=== PATIENT | female | born 1960 | race Caucasian/White ===

== ENCOUNTER 2020-08-27 09:30 | Outpatient (CLI) | payer OTHER, SELFPAY ==
--- NOTE | ~2020-08-27 | MM_ITS ---
EXAMINATION: MM screening [facility] BI w gamaliel HISTORY: Screening mammogram TECHNIQUE: Craniocaudal and mediolateral oblique 3-D tomosynthesis images were obtained and synthetic 2-D images were generated. CAD analysis was submitted and interpreted. COMPARISON: 06/14/2018, 06/07/2018, 12/18/2014, 02/21/2013 BREAST PARENCHYMAL COMPOSITION: There are scattered areas of fibroglandular density. FINDINGS: A stable asymmetry is present in the anterior third of the upper left breast on the mediola teral oblique view. There is no evidence of suspicious mass, calcification, or architectural distorti on to suggest malignancy in either breast. There has been no suspicious interval change. IMPRESSION: 1. No mammographic evidence of malignancy. 2. Recommend routine screening mammography in one year. BI-RADS Category 2: Benign finding(s). Reviewed, dictated and finalized at location A. B TECHNICIAN
== END 2020-08-27 09:31 | disposition home or self-care (01) ==
LOC: ANHIMG 09:34
PROVIDERS: PCP Nurse Practitioner Adult Health; Visit Provider Nurse Practitioner Adult Health
DX: Z12.31 Encounter for screening mammogram for malignant neoplasm of breast (principal)
CPT/HCPCS: 77063; 77067

== ENCOUNTER → 2023-03-12 10:44 | Outpatient (CLI) | payer OTHER, SELFPAY ==
--- NOTE | ~2023-03-12 | DEXA_ITS ---
Bone Density Report Name: INDER HAND Age: 62 Sex: Female Ethnicity: White Date of : 1960 Indication: postmenopausal; screening for osteoporosis; Referring Provider: Cortez, Cande Massey Study: Bone densitometry was performed. Exam Date: March 12, 2023 Accession number: [id number] Bone Density: Region BMD T-score Z-score Classification AP Spine (L1-L4) 1.246 1.8 3.4 Normal Femoral Neck (Left) 0.947 0.9 2.3 Normal Total Hip (Left) 1.224 2.3 3.4 Normal Femoral Neck (Right) 0.889 0.4 1.7 Normal Total Hip (Right) 1.120 1.5 2.5 Normal Total Hip Mean 1.172 1.9 3.0 Normal World Health Organization criteria for BMD impression classify patients as: Normal (T-score at or above -1.0), Osteopenia (T-score between -1.0 and -2.5), or Osteoporosis (T-score at or below -2.5). 10-year Fracture Risk: FRAX not reported because: All T-scores for Spine Total, Hip Total, Femoral Neck at or above -1.0 Clinical Information Provided by Patient: Has used the following medications: Vitamin D, Calcium Patient maximum height was 63 Menopause Age: 53 Drinks caffeinated beverages Onset of menses at age 12 Number of children 1 Impression: The patient has normal bone mass. Discussion: BONE DENSITY IS ABOVE THE MINIMUM DESIRABLE LEVEL AT ALL SKELETAL SITES TESTED. This patient?s bone mineral density is above the minimum desirable level (T-score -1.0 or better) at all sites measured. The patient should follow a healthful lifestyle (good nutrition with adequate calcium and vitamin D, and appropriate weight-bearing exercise). Follow-Up: Consider repeating this study in 5 years or sooner if there is some new clinical indication. Reported by: [facility] on 03/12/2023 11:07:00 AM. Reviewed, dictated and finalized at location A. [facility]
--- NOTE | ~2023-03-12 | MM_ITS ---
EXAMINATION: MM screening [facility] BI w gamaliel HISTORY: Screening mammogram TECHNIQUE: Craniocaudal and mediolateral oblique 3-D tomosynthesis images were obtained and synthetic 2-D images were generated. CAD analysis was submitted and interpreted. COMPARISON: 08/27/2020, 06/14/2018, 06/07/2018, 12/18/2014 BREAST PARENCHYMAL COMPOSITION: There are scattered areas of fibroglandular density. FINDINGS: Scattered benign-appearing calcifications are present. No suspicious mass, calcification, o r architectural distortion are identified in either breast to suggest malignancy. There has been no s uspicious interval change. IMPRESSION: 1. No mammographic evidence of malignancy. 2. Recommend routine screening mammography in one year. BI-RADS Category 2: Benign finding(s). Reviewed, dictated and finalized at location A.
== END ==
PROVIDERS: PCP Nurse Practitioner Family; Visit Provider Nurse Practitioner Family
DX: Z12.31 Encounter for screening mammogram for malignant neoplasm of breast (principal); Z78.0 Asymptomatic menopausal state
CPT/HCPCS: 77063; 77067; 77080

== ENCOUNTER 2023-06-08 10:52 | Outpatient (CLI) | payer OTHER, SELFPAY ==
--- NOTE | ~2023-06-08 | US_ITS ---
EXAMINATION: US carotid duplex BI DATE: 06/08/2023 11:50 INDICATION: Cerebrovascular accident TECHNIQUE: Grayscale, color Doppler, and pulsed Doppler images of the cervical carotid arteries were obtained. The degree of vessel stenosis is placed in one of the following categories: normal, <50%, 5 0-69%, >=70% but less than near-occlusion, near-occlusion, or total occlusion. Note that percent sten osis relative to normal distal artery lumen diameter is indirectly measured from velocity measurement s as described by Dariel, et al. Radiology 2003; 229:340-346. Notes: Normal: Peak systolic velocity <125 centimeters/sec and no plaque <50%. Peak systolic velocity <125 ( EDV <40; ICA/CCA PSV ratio <2.0; used these factors only a tandem lesions or low cardiac output or co ntralateral disease) 50-69 %: PSV 125-230 (EDV 40-100; ratio 2-4) >= 70% but less than near occlusion: PSV greater than 230 (EDV > 100; ratio> 4.0) Near Occlusion: PSV that is variable; markedly narrowed lumen Occlusion: Absent flow on color/spectral Doppler and no lumen on boone scale. COMPARISON: None. FINDINGS: RIGHT: The right common carotid artery (CCA) peak systolic velocity (PSV) is 100 cm/s. The right internal ca rotid artery (ICA) PSV is 43 cm/s. The right ICA end-diastolic velocity (EDV) is 16 cm/s. The right I CA/CCA PSV ratio is 0.4. The external carotid artery (ECA) PSV is 100 cm/s. There is antegrade flow i n the right vertebral artery. LEFT: The left CCA PSV is 55 cm/s. The left ICA PSV is 75 cm/s. The left ICA EDV is 15 cm/s. The left ICA/C CA PSV ratio is 0.9. The ECA PSV is 126 cm/s. There is antegrade flow in the left vertebral artery. There are thyroid nodules incompletely visualized on this examination. Recommend correlation with thy roid ultrasound. IMPRESSION: 1. Less than 50% stenosis in the right internal carotid artery by sonographic criteria. 2. Less than 50% stenosis in the left internal carotid artery by sonographic criteria. Reviewed, dictated and finalized at location B. IMPRESSION: 1. Less than 50% stenosis in the right internal carotid artery by sonographic c miguel. 2. Less than 50% stenosis in the left internal carotid artery by sonographic cr davi.
== END 2023-06-08 10:53 ==
DX: I63.9 Cerebral infarction, unspecified (principal); I65.23 Occlusion and stenosis of bilateral carotid arteries
CPT/HCPCS: 93880

== ENCOUNTER 2024-01-14 11:05 | Outpatient (CLI) | payer BC, SELFPAY ==
[2024-01-14 18:53] LABS: Appearance Urine Clear (Clear); Bacteria Urine None Seen /hpf; Bilirubin Urine Negative (Negative); Blood Urine Trace (Negative); Color Urine Yellow (Yellow); Glucose Urine UA Negative (Negative); Ketones Urine Negative (Negative); Leukocyte Esterase Ur 1+ LEU/UL (Negative); Nitrate Urine Negative (Negative); Non Pathogenic Casts 0-2; Protein Urine Negative (Negative); Specific Grav Ur 1.024 (1.001-1.035); Squamous Epithelial Cell Urine None Seen /hpf (Few); Urobilinogen Urine 0.2 mg/dL (<2.0); pH Urine 5.5 (5.0-9.0)
[2024-01-14 19:19] LABS: Add Urine Microscopic? YES
== END 2024-01-14 11:06 | disposition home or self-care (01) ==
LOC: ANHBWCLAB 11:06
PROVIDERS: PCP Nurse Practitioner Adult Health; Visit Provider Nurse Practitioner Adult Health
DX: R39.9 Unspecified symptoms and signs involving the genitourinary system (principal)
CPT/HCPCS: 81001; 87086; 87088

== ENCOUNTER 2024-02-29 13:00 | Outpatient (RCR) | payer BC, SELFPAY ==
--- NOTE | 2023-12-08 14:56 | OTOPEVAL1 ---
Assessment and note entered by CARLITO Mcgill/Arjun, CHT Evaluation Information Assessment Status Evaluation Diagnosis CVA Onset March 28, 2023 Subjective Information Patient presents today with her spouse, Ted, who helps provides help with her history as she has expressive aphasia. Her CVA has affected her right , dominant side. They report she was doing well inpatient rehab, getting her arm stronger, however she did a round of outpatient PT, which was too aggressive and painful and her arm function declined. They report she is unable to use her right UE to feed herself, drink from cups, or write. She has been recently able to use the right hand to pinch and pull up her pants when dressing . Reported Pain Level Pain Score 0: Self Report Additional Pain Score Comments No pain at rest. Mild to moderate pain in the shoulder with active ROM. Assessment OT Clinical Summary Patient referred to OT with decline in right UE use following a CVA. She presents with pain, tightness, and weakness that limits her ability to use the right UE for ADLs. Skilled OT indicated to maximize functional use of the right UE through therapeutic exercise, HEP instruction, and therapeutic activities. Plan of Care Interventions Therapeutic Exercise,Neuro Re-education, Therapeutic Activities,Hot Pack/Cold Pack OT Services Indicated Yes Treatment Frequency and 2x/week for 8 visits Duration These treatments will address the objective and functional deficits as defined above. The patient will be advanced safely and appropriately in order for the patient to progress towards his/her prior level of function. Additional exercises will be introduced and as well as a comprehensive home exercise program upon discharge, if needed, ?to ensure carryover of functional gains achieved in the clinic. This treatment plan has been reviewed and agreement upon by the patient.
--- NOTE | 2023-12-08 14:56 | OPREHPOC ---
Outpatient Therapy Plan of Care This is a Multidisciplinary Plan of Care that may contain components documented by all disciplines (PT, OT, and ST.) OT Problem 1 OT Problem #1 Knowledge Deficit OT Goal 1 Goal 1. Patient/spouse to be independent with instructed materials. Target Visit 8 OT Goal 1 Goal 1. Increase active ROM of the right shoulder - flexion to 100 - abduction to 80 - external rotation to be able to touch the back of her head Target Visit 8 OT Problem 3 OT Problem #3 Impaired Strength OT Goal 1 Goal 1. 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 Target Visit 8 OT Problem 4 OT Problem #4 Impaired Coordination OT Goal 1 Goal 1. Be able to complete the 9-hole peg test with the right hand in 45 seconds or less. Target Visit 8
--- NOTE | 2023-12-31 13:58 | OTOPPROG ---
Assessment and note entered by CARLITO Mcgill/Arjun, CHT Progress Update 12/31/23 Diagnosis CVA Onset March 28, 2023 Subjective Information Patient reports noticing progress in her right UE since beginning therapy. She reports she is raising the arm higher, picking up more objects with the right hand, and able to pinch and open bags. Assessment OT Clinical Summary Patient has been working with OT x1 month focusing on right UE flexibility, strength, and functional coordination. She is making progress with all of the above, which is facilitating improved functional use during ADLs. Continued skilled OT indicated to maximize functional use of the right UE through therapeutic exercise, HEP instruction, and therapeutic activities. Plan of Care Interventions Therapeutic Exercise,Neuro Re-education, Therapeutic Activities,Hot Pack/Cold Pack OT Services Indicated Yes Treatment Frequency and 2x/week for 8 visits Duration These treatments will address the objective and functional deficits as defined above. The patient will be advanced safely and appropriately in order for the patient to progress towards his/her prior level of function. Additional exercises will be introduced and as well as a comprehensive home exercise program upon discharge, if needed, ?to ensure carryover of functional gains achieved in the clinic. This treatment plan has been reviewed and agreement upon by the patient.
--- NOTE | 2023-12-31 13:59 | OPREHPOC ---
Outpatient Therapy Plan of Care This is a Multidisciplinary Plan of Care that may contain components documented by all disciplines (PT, OT, and ST.) OT Problem 1 OT Problem #1 Knowledge Deficit OT Goal 1 Goal 1. Patient/spouse to be independent with instructed materials. ---OT POC UPDATE 12/31/23--- 1. Met, continue as HEP is progressed Target Visit 16 OT Goal 1 Goal 1. Increase active ROM of the right shoulder - flexion to 100 - abduction to 80 - external rotation to be able to touch the back of her head ---OT POC UPDATE 12/31/23--- 1. Progressing, continue 2. Progressing, continue 3. Progressing, continue Target Visit 16 OT Problem 3 OT Problem #3 Impaired Strength OT Goal 1 Goal 1. 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 ---OT POC UPDATE 12/31/23--- 1. Progressing, continue 2. Progressing, continue 3. Progressing, continue Target Visit 16 OT Problem 4 OT Problem #4 Impaired Coordination OT Goal 1 Goal 1. Be able to complete the 9-hole peg test with the right hand in 45 seconds or less. ---OT POC UPDATE 12/31/23--- 1. Progressing, continue Target Visit 16
--- NOTE | 2024-01-13 15:12 | PCOTNOTE ---
The patient treatment was not able to be completed on Wednesday 01/10 due to Therapist being out of the building. Will plan to continue treatment per plan of care. Patient rescheduled 01-11.
--- NOTE | 2024-01-29 12:07 | OTOPPROG ---
Assessment and note entered by CARLITO Mcgill/Arjun, ROSALINAT Progress Update 01/29/24 Assessment Status Progress Diagnosis CVA Onset March 28, 2023 Subjective Information Patient reports continued progress over the past month. She reports she began using her right hand to feed herself some (compared to not at all a month ago). She is using her right hand to scoop coffee grounds into the bleach maker. Reports improved flexibility. States she was able to clam picker some pans with both hands and place them on a shelf. Patient's reports she is compliant with her home program. Assessment OT Clinical Summary Patient has been working with OT x2 months focusing on right UE flexibility, strength, and functional coordination. She is making progress with all of the above, which is facilitating improved functional use during ADLs. The shoulder continues to have mild to moderate pain with passive shoulder motion, gross weakness, and overall stiffness and hypomobility of the shoulder . Distally the elbow, wrist, and hand are making good progress with strength and functional use. Continued skilled OT indicated to maximize functional use of the right UE through therapeutic exercise, HEP instruction, and therapeutic activities. Plan of Care Interventions Therapeutic Exercise,Neuro Re-education, Therapeutic Activities,Hot Pack/Cold Pack OT Services Indicated Yes Treatment Frequency and 2x/week for 8 visits Duration These treatments will address the objective and functional deficits as defined above. The patient will be advanced safely and appropriately in order for the patient to progress towards his/her prior level of function. Additional exercises will be introduced and as well as a comprehensive home exercise program upon discharge, if needed, ?to ensure carryover of functional gains achieved in the clinic. This treatment plan has been reviewed and agreement upon by the patient.
--- NOTE | 2024-01-29 12:08 | OPREHPOC ---
Outpatient Therapy Plan of Care This is a Multidisciplinary Plan of Care that may contain components documented by all disciplines (PT, OT, and ST.) OT Problem 1 OT Problem #1 Knowledge Deficit OT Goal 1 Goal 1. Patient/spouse to be independent with instructed materials. ---OT POC UPDATE 12/31/23--- 1. Met, continue as HEP is progressed ---OT POC UPDATE 01/29/24---- 1. Met, continue as HEP is progressed Target Visit 24 OT Goal 1 Goal 1. Increase active ROM of the right shoulder - flexion to 100 - abduction to 80 - external rotation to be able to touch the back of her head ---OT POC UPDATE 12/31/23--- 1. Progressing, continue 2. Progressing, continue 3. Progressing, continue ---OT POC UPDATE 01/29/24---- 1. Progressing, continue 2. Progressing, continue 3. Progressing, continue Target Visit 24 OT Problem 3 OT Problem #3 Impaired Strength OT Goal 1 Goal 1. 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 ---OT POC UPDATE 12/31/23--- 1. Progressing, continue 2. Progressing, continue 3. Progressing, continue ---OT POC UPDATE 01/29/24---- 1. Progressing, continue 2. Progressing, continue 3. Progressing, continue Target Visit 24 OT Problem 4 OT Problem #4 Impaired Coordination OT Goal 1 Goal 1. Be able to complete the 9-hole peg test with the right hand in 45 seconds or less. ---OT POC UPDATE 12/31/23--- 1. Progressing, continue ---OT POC UPDATE 01/29/24---- 1. Progressing, continue Target Visit 24
--- NOTE | 2024-02-29 13:48 | OTOPDC ---
Assessment and note entered by Michael Salas, CARLITO/Arjun, CHT OT Discharge Summary 02/29/24 Diagnosis CVA Onset March 28, 2023 Subjective Information Patient reports she is feeling about the same as she was a month ago. She is unable to note any functional changes over the last few weeks. She has continued to be able to use her right hand to feed herself and to scoop coffee grounds into the car seat maker. She reports she is functioning independently and is pleased with the level of functioning she has with her arm. Compared to a few months ago she was having shoulder pain with any/all arm use and she is no longer experiencing pain. Assessment OT Clinical Summary Patient has been working with OT x3 months focusing on right UE flexibility, strength, and functional coordination. Since the start of care she has made good progress with functional flexibility, strength, and fine motor coordination . She is no longer functioning on a daily basis with shoulder pain. At this time she has reached a progress plateau with therapy. Reviewed HEP today and she completes with excellent understanding. No further skilled OT indicated at this time. Plan of Care OT Services Indicated No
== END 2024-02-29 14:22 | disposition home or self-care (01) ==
LOC: ANHGOSHOT 13:00
PROVIDERS: PCP Nurse Practitioner Adult Health; Visit Provider Nurse Practitioner Adult Health
DX: R29.898 Other symptoms and signs involving the musculoskeletal system (principal)
CPT/HCPCS: 97110; 97165

== ENCOUNTER 2024-03-21 11:42 | Outpatient (CLI) | payer BC, SELFPAY ==
--- NOTE | ~2024-03-21 | US_ITS ---
EXAMINATION: US thyroid DATE: 03/21/2024 12:00 INDICATION: Nontoxic single thyroid nodule. TECHNIQUE: Multiple ultrasound images of the thyroid were obtained. COMPARISON: None. FINDINGS: The right thyroid lobe measures 6.2 x 4.2 x 2.6 cm. The left thyroid lobe is absent. In the right th yroid lobe, there is a 3.5 cm solid, hypoechoic, taller than wide nodule with ill-defined margin with out echogenic foci (TI-RADS TR5). In the right thyroid lobe, there is a 3.1 cm predominantly solid, i soechoic, wider than tall nodule with ill-defined margin without echogenic foci (TR3). IMPRESSION: 1. Multinodular goiter status post left hemithyroidectomy. Comparison with outside imaging and histor y is recommended to determine if biopsy is warranted. Reviewed, dictated and finalized at location A. IMPRESSION: 1. Multinodular goiter status post left hemithyroidectomy. Comparison with outs leeann imaging and history is recommended to determine if biopsy is warranted.
== END 2024-03-21 11:43 ==
LOC: GOSHIMG 11:46
PROVIDERS: PCP Nurse Practitioner Adult Health; Visit Provider Nurse Practitioner Adult Health
DX: E04.2 Nontoxic multinodular goiter (principal); E89.0 Postprocedural hypothyroidism
CPT/HCPCS: 76536

== ENCOUNTER 2024-08-11 10:31 | Outpatient (CLI) | payer BC, SELFPAY ==
--- NOTE | ~2024-08-11 | MM_ITS ---
EXAMINATION: MM screening cleve BI w gamaliel HISTORY: Screening TECHNIQUE: Craniocaudal and mediolateral oblique 3-D tomosynthesis images were obtained and synthetic 2-D images were generated. CAD analysis was submitted and interpreted. COMPARISON: Comparison to multiple prior studies sequentially, with oldest reviewed study dated 11/2014. BREAST PARENCHYMAL COMPOSITION: Not dense: There are scattered areas of fibroglandular density. FINDINGS: There is no evidence of suspicious mass, calcification, or architectural distortion to sugg est malignancy in either breast. There has been no suspicious interval change. IMPRESSION: 1. No mammographic evidence of malignancy. 2. Recommend routine screening mammography in one year. BI-RADS Category 1: Negative Reviewed, dictated and finalized at location B.
== END 2024-08-11 10:32 | disposition home or self-care (01) ==
LOC: MICIMG 10:32
PROVIDERS: PCP Nurse Practitioner Adult Health; Visit Provider Nurse Practitioner Adult Health
DX: Z12.31 Encounter for screening mammogram for malignant neoplasm of breast (principal)
CPT/HCPCS: 77063; 77067

== ENCOUNTER 2025-06-26 11:51 | Outpatient (CLI) | payer BC, SELFPAY ==
--- OUTSIDE RECORDS SUMMARY | 2023-08-27 09:27 | XMS_ITS | Continuity of Care Document ---
Author Organization [facility] Address [address] [place] [address] [place] [address] Phone Care Team Providers Care Test Driller Name Role Phone Jacoby Merrill MD Unavailable Unavailable Allergies, Adverse Reactions, Alerts Substance Reaction Status Criticality codeine Nausea / Vomiting Active No Informa tion Medications Medication Instructions Dosage Effective Dates (start - stop) Status Comments folic acid 400 mcg tablet take 1 tablet by oral route every day 0.4 MG - Active Lipitor 80 mg tablet take 1 tablet by or al route every day 80 MG - Active irbesartan 75 mg tablet take 1 tablet by oral route every day 75 MG - Active memantine 5 mg tablet take 1 tablet by o ral route 2 times every day 5 MG - Active Procedures Procedure Date OFFICE/OUTPATIENT VISIT, EST OFFICE/OUTPATIENT VISIT, EST OFFICE/OUTPATIENT VISIT, EST PREV VISIT, NEW, AGE 40-64 OFFICE/OUTPATIENT VISIT, NEW Advance Directives Directive Yes / No Effective Date File Name No Information Encounters Encounter Description Practice Location Reason(s) For Visit Diagnoses Date Provider Providers Copied on Encounter OFFICE/OUTPA TIENT VISIT, EST [facility], [address] [place], [id number], [place] tel:[phone] [facility] thyroid nodule1 (chief complaint) HTN (chief complaint) Thyroid noduleEssential (primary) hypertension [address] [place], [id number] , [place]. tel:[phone] OFFICE/OUTPA TIENT VISIT, [facility], [address], [place], [place], [id number], tel:[phone] [facility] UTI1 (chief complaint) thyroid nodule1 (chief complaint) HLP (chief complaint) folate1 (chief complaint) CVA1 (chief complaint) Mixed hyperlipidemiaHyper glycemiaFolate deficiencyAcute cystitis without hematuriaStrokeThyr oid nodule 3 [address]. [address], [place], [place], [id number] , [place]. tel:[phone] OFFICE/OUTPA TIENT VISIT, [facility], [address] [place], [place], [id number], tel:[phone] [facility] CVA1 (chief complaint) HLP (chief complaint) HTN (chief complaint) thyroid nodule1 (chief complaint) Thyroid noduleStrokeEssenti al (primary) hypertensionMixed hyperlipidemiaEncou nter for screening for other viral diseasesOther specified disorder of bone density 3 [address]. [address], [place], [place], [id number] , [place]. tel:[phone] PREV VISIT, NEW, AGE 40-64 [facility], [address], [place], [place], [address], [place] tel:[phone] [facility] physical (chief complaint) Encounter for general adult medical exam w abnormal findingsStrokeMixed hyperlipidemiaEssen tial (primary) hypertension 3 [address], [place], [place], [address] , [place]. tel:[phone] Family History Family Member Type Diagnosis Age At Onset Brother Problem Alive and well Father Problem 83 pacemaker, CAD Mother Problem of leukemia 83 Payers Payer name Insurance type Covered democrat ID Authoriza tion(s) No Information Social History Type Description Quantity Date Captured Comments Alcohol Use Details No Caffeine Use Details Unknown Tobacco Use Status Current non-smoker Smoking Status Never smoker Nov-09-2023 Sex Female Vital Signs Date / Time: Height Weight BMI Pulse Rate Blood Pressure Temperature Respiratory Rate Body Surface Area Head Circumference BMI percentile Pulse Ox Inhaled Ox 2:45 PM 63.00 in 162.00 lbs 28.7 0 kg/m eter (2) 87 /min 148/88 mm[Hg] 97.9 F 16 /min Chief Complaint And Reason For Visit From encounter dated '08/27/2023 14:27'. thyroid nodule1 (chief complaint). Description: Pt has thyroid nodule x 2 Pt denies any dysphagia or neck pain Pt had left partial thyroidectomy due to goiter many years ago. HTN (chief complaint). Description: Pt has mild HTN pt takes irbesartan and her bp is borderline high Pt states that her her bp is around 130/70 at home pt just finished PT Plan Of Treatment Date Type Action Status Referral Ordered: Neurology (related to Stroke) ordered Referral Ordered: Physical Therapy (related to Stroke) ordered Referral Ordered: Referrals: Neurology. Evaluate and treat ordered Referral Ordered: US THYROID ordered Referral Ordered: DXA BONE DENSITY, AXIAL ordered Referral Referred To: Physical Therapy Ordered: Referrals: Physical Therapy. Evaluate and treat ordered Referral Ordered: Speech Therapy (related to Stroke) ordered Referral Ordered: Physical Therapy (related to Stroke) ordered Referral Ordered: Occupational Therapy (related to Stroke) ordered Referral Referred To: Speech Therapy Ordered: Referrals: Speech Therapy. Evaluate and treat ordered Referral Referred To: Physical Therapy Ordered: Referrals: Physical Therapy ordered Referral Referred To: Occupational Therapy Ordered: Referrals: Occupational Therapy. Evaluate and treat ordered History Of Present Illness Encounter Date Complaint History Of Prese nt Illness thyroid nodule1 Pt has thyroid n odule x 2 Pt denies any dysphagia or neck pain Pt had left partial thyroidectomy due to goiter many years ago. HTN Pt has mild HTN pt takes irbesartan and her bp is borderline high Pt states that her her bp is around 130/70 at home pt just finished PT CVA1 Pt has CVA. Pt h as toni with PT and neurology soon. folate1 Pt has folate de ficiency. Pt does eat green vegetable. HLP Pt has HLP Pt st arted lipitor recently. Her LDL is borderline high thyroid nodule1 Pt denies any dy sphagia or neck pain Pt has history of partial right thyroidectomy due to benign goiter. Pt has not done thyroid nodule UTI1 Pt has asymptoma tic UTI Pt denies any pelvic pain or flank pain or fever or chill thyroid nodule1 Pt has multiple thyroid nodule on imaging study recently Pt denies any dysphagia or neck pain HTN Pt has HTN Pt ta kes irbesartan and her bp is stable. CVA1 Pt recently suff ered acute onset of left M 1 artery occlusion and ischemia CVA. Pt presented to hospital with acute onset of right facial droop with numbness/weakness of RUE and RLE on 03/28/23. MRI showed left parietal acute stroke. She developed right sided hemiplegia and completely aphasic. CTA revealed L M1 occlusion. She also has complete occlusio of the left ICA. Patient left ICA angioplasty and stenting with residual 60 % stenosis. her A1c is 5.9, with LDL 125. EKG showed tachycardia and TTE is essentially benign. Pt did have gout flare up which was treated while inpatient. Her bp was borderline high in hospital but did not require BP medication. Pt was discharged home with plavix, lipitor 80 mg and memantine which is a new approach to treat acute Ischaemic CVA to decrease risk for dementia by [facility]. She was taking lipitor 10 mg prior to admission and she is now on 80 mg lipitor post CVA Pt also has HTN today. Pt denies any chest pain or headache. Pt and state that her aphasia is improving as well as right side hemiplegia. she regained almost all motor function RLE with residual weakness RUE. pt also notices resolution of her right side facial droop as well. Pt has been doing speech therapy from [facility] and she has not found a place to do PT/OT yet. Pt currently still has right upper extremity weakness. Pt has been communicating with neurologist at [facility] who took her off plavix recently and she did have carotid doppler study done which showed less than 50 % stenosis on both side HLP Pt has HLP <pt t akes lipitor Pt needs refill Pt denies any myalgia physical Pt needs annual physical. Pt is accompanied by her today. Pt recently suffered acute onset of left M 1 artery occlusion and ischemia CVA. Pt presented to hospital with acute onset of right facial droop with numbness/weakness of RUE and RLE on 03/28/23. MRI showed left parietal acute stroke. She developed right sided hemiplegia and completely aphasic. CTA revealed L M1 occlusion. She also has complete occlusio of the left ICA. Patient left ICA angioplasty and stenting with residual 60 % stenosis. her A1c is 5.9, with LDL 125. EKG showed tachycardia and TTE is essentially benign. Pt did have gout flare up which was treated while inpatient. Her bp was borderline high in hospital but did not require BP medication. Pt was discharged home with plavix, lipitor 80 mg and memantine which is a new approach to treat acute Ischaemic CVA to decrease risk for dementia by [facility]. She was taking lipitor 10 mg prior to admission and she is now on 80 mg lipitor post CVA Pt also has HTN today. Pt denies any chest pain or headache. Pt and state that her aphasia is improving as well as right side hemiplegia. she regained almost all motor function RLE with residual weakness RUE. pt also notices resolution of her right side facial droop as well. Pt needs outpatient PT/OT and speech therapy and she needs insurance referral for above at [facility]. Instructions Date Instruction Additional Infor whit No Information Assessments Type Assessment Date assessment Thyroid nodule assessment Essential (primary) hypertension Mental Status Date Cognitive Assessment Orientation - Questa ed to time, place, person, situation.
--- OUTSIDE RECORDS SUMMARY | 2025-06-26 12:05 | XMS_ITS | Encounter Summary ---
Author Organization [facility] Address [address] [place] [address] Care Team Providers Care Rail Grinder Name Role Phone Unavailable Primary Care Provider Unavailabl e Encounter Details Date Type Department Care Team (Late st Contact Info) Description 10/06/2008 Outpatient Historical [facility] Sandeep Ramachandran MD NO ADDRESS ON FILE Cough Social History Tobacco Use Types Packs/Day Years Used Date Smoking Tobacco: Never Assessed Comments Unknown Sex and Gender Information Value Date Recorded Sex Assigned at Not on file Legal Sex Female 3:00 AM OPHTHALMIC ASST Gender Identity Not on file Sexual Orientation Not on file documented as of this encounter Plan of Treatment Not on file documented as of this encounter Visit Diagnoses Diagnosis Cough documented in this encounter
--- OUTSIDE RECORDS SUMMARY | 2025-06-26 12:05 | XMS_ITS | Clinical Summary ---
Author Organization [employer] [facility] on Address [address] [place], [place] [address] Phone Care Team Providers Care Log Rider Name Role Phone Unavailable Primary Care Provider Unavailabl e Allergies Active Allergy Reactions Criticality Noted Date Comments Codeine Unknown 04/07/2023 Medications aspirin (JACKELINE CHEWABLE) 81 mg Tablet, Chewable Take 1 Tablet (81 mg) by mouth daily with breakfast. 30 Tablet 04/17/2023 Active atorvastatin (LIPITOR) 80 mg tablet Take 1 Tablet (80 mg) by mouth daily at bedtime. 30 Tablet 04/16/2023 Active memantine (NAMENDA) 5 mg Tablet Take 1 Tablet (5 mg) by mouth 2 times daily. 60 Tablet 04/16/2023 Active clopidogreL (PLAVIX) 75 mg Tablet Take 1 Tablet (75 mg) by mouth daily. 30 Tablet 04/17/2023 Active Active Problems Problem Noted Date Diagnosed Date Cerebrovascular accident (CVA) due to vascular o cclusion 04/07/2023 HLD (hyperlipidemia) 04/07/2023 Hyperthyroidism 04/07/2023 Goiter with hyperthyroidism 04/07/2023 Family History Medical History Relation Name Comments Heart Disease Father Relation Name Status Comments Father Social History Tobacco Use Types Packs/Day Years Used Date Smoking Tobacco: Unknown Tobacco Cessation:Counseling Given: Not Answered Feeling Safe Answer Date Recorded Are you in a relationship wi th someone who hurts you emotionally and/or physically? 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 Gender Identity Not on file Sexual Orientation Not on file Last Filed Vital Signs Vital Sign Reading Time Taken Comments Blood Pressure 121/86 04/17/2023 4:17 AM CDT Pulse 68 04/17/2023 4:17 AM CDT Temperature 36.6 C (97.9 F) 04/17/2023 4:17 AM CDT Respiratory Rate 18 04/17/2023 4:17 AM CDT Oxygen Saturation 97% 04/17/2023 4:17 AM CDT Inhaled Oxygen Concentration - - Weight 76.3 kg (168 lb 4.8 oz) 04/15/2023 1:00 P M CDT Height 160 cm (5' 3) 04/07/2023 7:09 PM CDT Body Mass Index 29.81 04/07/2023 7:09 PM CDT Plan of Treatment Health Maintenance Due Date Last Done Comments DTAP/TDAP/TD VACCINES (1 - Tdap) 1979 HPV/Cotest (21-29) 1981 CERVICAL CANCER SCREENING 1990 HPV/Cotest (30-65) 1990 PAP SMEAR 1990 BREAST CANCER SCREENING 2000 COLORECTAL SCREENING 2005 Colorectal Cancer Screening 2005 FIT-DNA Q 3 years 2005 FIT/FOBT Q 1 year 2005 Flex Sig/CT Colonography Q 5 years 2005 ZOSTER VACCINE (1 of 2) 2010 INFLUENZA VACCINE (#1) 2025 RSV VACCINE (60+ or ) (1 - 1-dose 75+ series) 2035 Insurance [employer] [facility] [id number] Advance Directives For more information, please contact: [phone] * Full Code (Latest Code Status on File) Date Activated Date Inactivated Comments 04/07/2023 6:26 PM 04/17/2023 4:22 PM
--- OUTSIDE RECORDS SUMMARY | 2025-06-26 12:05 | XMS_ITS | Encounter Summary ---
Author Organization [facility] Address 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
--- OUTSIDE RECORDS SUMMARY | 2025-06-26 12:05 | XMS_ITS | Encounter Summary ---
Author Organization [facility] Address 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
--- OUTSIDE RECORDS SUMMARY | 2025-06-26 12:05 | XMS_ITS | Encounter Summary ---
Author Organization [facility] Address [address] [place] [address] Care Team Providers Care Pharmacy Coordinator Name Role Phone Unavailable Primary Care Provider Unavailabl e Encounter Details Date Type Department Care Team (Latest Contact Info) Description 09/05/2008 Outpatient Historical [facility], [address] Tony Parekh MD NO ADDRESS ON FILE Chronic Sphenoidal Sinusitis Social History Tobacco Use Types Packs/Day Years Used Date Smoking Tobacco: Never Assessed Comments Unknown Sex and Gender Information Value Date Recorded Sex Assigned at Not on file Legal Sex Female 3:00 AM QUALITY ASSURANCE PRACTICE MANAGER Gender Identity Not on file Sexual Orientation Not on file documented as of this encounter Plan of Treatment Not on file documented as of this encounter Procedures Procedure Name Priority Date/Time Associated Diagnosis Comments WOUND CULTURE WITH GRAM STAIN Routine 09/05/2008 1:17 PM QUALITY ASSURANCE PRACTICE MANAGER documented in this encounter Results * WOUND CULTURE WITH GRAM STAIN (09/05/2008 1:17 PM QUALITY ASSURANCE PRACTICE MANAGER) GRAM STAIN Rare Gram Negative Rods Rare WBC's seen [facility] PRELIMINARY REPORT Heavy growth Gram Negative Rods possible Haemophilus species [facility] FINAL REPORT Heavy growth Haemophilus influenzae beta-lactamase negative Note: A few beta-lactamase negative strains may be ampicillin resistant. Light growth Staphylococcus NOT S. aureus [facility] Specimen from nasal sinus (specimen) (Maxillary) 09/05/2008 1:17 PM QUALITY ASSURANCE PRACTICE MANAGER 09/05/2008 1:36 PM QUALITY ASSURANCE PRACTICE MANAGER us Tony Parekh MD MICROBIOLOGY - GENERAL ORDERAB LES Final Result INTERFACE SYSTEM Refer to clinic/hospital department [facility] CLIA# [id number] [address] [place] [address] documented in this encounter Visit Diagnoses Diagnosis Chronic sphenoidal sinusitis documented in this encounter
--- OUTSIDE RECORDS SUMMARY | 2025-06-26 12:05 | XMS_ITS | Clinical Summary ---
Author Organization [facility] Address [address] [place] [address] Care Team Providers Care Street Light Wirer Name Role Phone Cande Toro NP Primary Care Provider [phone] Allergies Active Allergy Reactions Criticality Noted Date Comments Codeine Other (See comments) Low 03/28/2023 weakness Medications aspirin 81 mg chewable tablet Take 1 tablet (81 mg total) by mouth daily 30 tablet 11 04/08/2023 Active rosuvastatin (CRESTOR) 40 mg tablet Take 1 tablet (40 mg total) by mouth nightly 30 tablet 11 04/07/2023 Active insulin lispro (HumaLOG, ADMELOG) 100 unit/mL vial for injectionIndica tions:Diabetes Mellitus Inject 0-5 Units under the skin nightly 10 mL 04/07/2023 Active insulin lispro (HumaLOG, ADMELOG) 100 unit/mL vial for injectionIndica tions:Diabetes Mellitus Inject 0-10 Units under the skin 3 (three) times a day with meals 10 mL 04/07/2023 Active memantine (NAMENDA) 5 mg tabletIndicatio ns:Aphasia Take 1 tablet (5 mg total) by mouth 2 (two) times a day 180 tablet 3 05/14/2023 Active ticagrelor (BRILINTA) 90 mg tablet Take 1 tablet (90 mg total) by mouth 2 (two) times a day 180 tablet 3 06/05/2023 Active Active Problems Problem Noted Date Diagnosed Date Cerebrovascular accident (CVA), unspecified mech anism 03/28/2023 Medical History Medical History Date Comments Goiter Hyperlipidemia Social History Tobacco Use Types Packs/Day Years Used Date Smoking Tobacco: Never Passive Smoke Exposure: Never Smokeless Tobacco: Never Tobacco Cessation:Counseling Given: Not Answered PHQ-2 Answer Date Recorded PHQ-2 Total Score (If total score is 3 or more points, staff should administer the PHQ-9) 0 03/30/2023 Personal Safety Answer Date Recorded Have you ever been in or are you currently in a harmful physical or emotional relationship or is someone making you feel afraid or unsafe? Denies 04/01/2023 Comments Unknown Sex and Gender Information Value Date Recorded Sex Assigned at Not on file Legal Sex Female 3:15 AM ADJUDICATION SPECIALIST Gender Identity Not on file Sexual Orientation Not on file Obstetrics History Last Filed Vital Signs Vital Sign Reading Time Taken Comments Blood Pressure 134/61 04/07/2023 4:05 PM CDT Pulse 73 04/07/2023 4:05 PM CDT Temperature 36.7 C (98.1 F) 04/07/2023 4:05 PM CDT Respiratory Rate 16 04/07/2023 4:05 PM CDT Oxygen Saturation 98% 04/07/2023 4:05 PM CDT Inhaled Oxygen Concentration - - Weight 75.5 kg (166 lb 7.2 oz) 03/28/2023 8:00 P M CDT Height 165.1 cm (5' 5) 03/28/2023 8:00 PM CDT Body Mass Index 27.7 03/28/2023 8:00 PM CDT Plan of Treatment Health Maintenance Due Date Last Done Comments Breast Cancer Screening-Mammogram 1960 Cervical Cancer Screening 1960 Colon Cancer Screening-Colonoscopy 1960 Hepatitis C Screening 1960 Hepatitis B Screening 1978 Regular Well Visit/Exam 18-64 1978 Zoster Vaccine (1 of 2) 2010 DTaP/Tdap/Td Vaccine (2 - Tdap) 02/23/2022 02/24/2012 Depression Screening 03/28/2024 03/28/2023 Covid-19 Vaccine ( - season) 2024 10/04/2022, 09/17/2021, 02/07/2021, Additional history exists Influenza Vaccine (#1) 2025 , 09/17/2021, 10/28/2013 Pneumococcal vaccine <65 Aged Out No longer eligible based on patient's age to complete this topic Medical Devices Implanted Type Area It Service Delivery Manager Device Identifier Shelf Expiration Date Model / Serial / Lot [employer] Protege Gps Exprt 6mm 6fr 40mm 135cm Rapid Exchange Self Expand [id number] - [id number] Implanted:Qty: 1 on 03/28/2023 at [facility] [employer] 06/24/2024 [id number] / / [id number] [employer] Angio-Seal Vip [place]-Plus 8fr .038in 70cm Hemostatic Latex Free [id number] - [id number] Implanted:Qty: 1 on 03/28/2023 at [facility] [employer] 08/18/2023 [id number] / / [id number] Insurance [facility] [place] [place] [facility] [place] [place] Advance Directives For more information, please contact: [phone] * Full Code (Latest Code Status on File) Date Activated Date Inactivated Comments 03/28/2023 8:12 PM 04/07/2023 9:[address] Light Wirer Relationship Specialty Start Date End Date Cande Toro NP PCP - General Nurse Practitioner 03/28/23
[2025-06-26 19:04] LABS: Add Urine Microscopic? YES; Appearance Urine Cloudy (Clear); Glucose Urine UA Negative (Negative); Leukocyte Esterase Ur 3+ LEU/UL (Negative); Nitrate Urine Negative (Negative); Non Pathogenic Casts 0-2; Specific Grav Ur 1.019 (1.001-1.035)
== END 2025-06-26 11:52 | disposition home or self-care (01) ==
LOC: ANHBWCLAB 11:52
PROVIDERS: PCP Nurse Practitioner Adult Health; Visit Provider Nurse Practitioner Adult Health
DX: R39.9 Unspecified symptoms and signs involving the genitourinary system (principal)
CPT/HCPCS: 81001; 87086